=== PATIENT | male | born 1995 | race Two or more races ===

== ENCOUNTER 2017-01-08 16:52 | Emergency (ER) | payer BC ==
[2017-01-08] MEDS ORDERED: oxyCODONE/Acetamin 5/325 MG* TAB PO ONE (17:21)
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
[2017-01-08] MEDS ORDERED: Ketorolac INJ* 60 MG/2 ML VIAL IM ONE (18:48)
[2017-01-08] MEDS ORDERED: HYDROcodone/ACETAMIN 5-325 MG* 1 TAB PO ONE (19:09)
[2017-01-09 07:10] VITALS: BP 93/61
--- NOTE | 2017-02-05 10:32 | PN ---
Progress Note - Progress Note Note: nondisplaced fracture of the nasal bones
== END 2017-01-08 19:35 | disposition home or self-care (01) ==
LOC: ED 16:52
DX: S02.2XXA Fracture of nasal bones, initial encounter for closed fracture (principal); R55 Syncope and collapse; R22.0 Localized swelling, mass and lump, head; R04.0 Epistaxis; R51 Headache; S06.9X0A Unspecified intracranial injury without loss of consciousness, initial encounter; Y09 Assault by unspecified means; Y93.9 Activity, unspecified; Y92.9 Unspecified place or not applicable
CPT/HCPCS: 70450; 70486; 96374; 99282; A9270-GY; J1885

== ENCOUNTER 2017-02-08 19:37 | Inpatient (IN) | payer BC ==
[2017-02-08] MEDS ORDERED: LORazepam TAB(*) 1 MG PO ONE (19:56)
[2017-02-08 20:22] LABS: Benzodiazepine Urine Screen Presumptive Positive (None Detect)
[2017-02-08 20:23] LABS: Hematocrit 47 % (42-52); Hemoglobin 15.4 g/dl (14.0-18.0); Mean Corpuscular HGB Conc 33 g/dl (31-36); Mean Corpuscular Hemoglobin 27 pg (27-31); Mean Corpuscular Volume 83 fL (80-94); Mean Platelet Volume 7 um3 (7.4-10.4); Red Blood Count 5.63 10^6/ul (4.0-5.4); Red Cell Distribution Width 13 % (10.5-15); White Blood Count 10.1 10^3/ul (3.5-10.8)
[2017-02-08] MEDS ORDERED: LORazepam INJ* 2 MG/ML 1 ML VIAL ONE (20:26)
[2017-02-08] MEDS ORDERED: diPHENhydraMINE IV* 50 MG/ML 1 ml VIAL (BENADRYL) ONE (20:27)
[2017-02-08] MEDS ORDERED: Haloperidol INJ IV/IM* 5 MG/ML AMP ONE (20:27)
[2017-02-08 20:29] LABS: Urine Bacteria Absent (Absent); Urine Bilirubin Negative (Negative); Urine Glucose Negative (Negative); Urine Nitrite Negative (Negative)
[2017-02-08] MEDS ORDERED: diPHENhydraMINE IV* 50 MG/ML 1 ml VIAL (BENADRYL) IM ONE (20:29)
[2017-02-08] MEDS ORDERED: LORazepam INJ* 2 MG/ML 1 ML VIAL IM ONE (20:29)
[2017-02-08] MEDS ORDERED: Haloperidol INJ IV/IM* 5 MG/ML AMP IM ONE (20:29)
[2017-02-08 20:37] LABS: ALT 14 U/L (7-52); AST 23 U/L (13-39); Albumin 3.8 g/dL (3.2-5.2); Alkaline Phosphatase 60 U/L (34-104); Anion Gap 6 mmol/L (2-11); BUN/Creatinine Ratio 12.5 (8-20); Blood Urea Nitrogen 14 mg/dL (6-24); CO2 Carbon Dioxide 25 mmol/L (22-32); Calcium 9.2 mg/dL (8.6-10.3); Chloride 106 mmol/L (101-111); EGFR African American 106.4 (>60); EGFR Non-African American 82.8 (>60); Globulin 3.3 g/dL (2-4); Glucose 93 mg/dL (70-100); Sodium 137 mmol/L (133-145); Total Protein 7.1 g/dL (6.4-8.9)
[2017-02-08 20:45] LABS: Acetaminophen < 15 mcg/mL; Alcohol < 10 mg/dL (<10); Salicylate < 2.50 mg/dL (<30)
[2017-02-08 20:56] LABS: TSH (Thyroid Stimulating Horm) 0.95 mcIU/mL (0.34-5.60)
--- NOTE | 2017-02-08 23:35 | ED ---
Sunil Jin Billy, scribed for Mika Bautista MD on 02/08/17 at 2010 . 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 His friend called 911 after the patient said he had thoughts to hurt himself. Patient states that he is withdrawing from heroin at this time. He last used 2 days ago. He says he normally injects 0.5-1.0g heroin or consumes 2-3 tablets of oxycodone per day. He has a history of anxiety but denies any prior history of depression or suicidal ideation/attempts. But he states he has recently been through a lot of stress in his personal life. At this time in the ED, he says all he can think about is "breaking out of here and buying heroin" but he " knows that that's bad." - History Of Current Complaint Chief Complaint: EDMentalHealth Time Seen by Provider: 02/08/17 19:45 Hx Obtained From: Patient Onset/Duration: Gradual Onset, Lasting Days, Still Present Timing: Constant Severity Initially: Moderate Severity Currently: Moderate Character: Anxious Aggravating Factor(s): Recent Stress, Alcohol Use Alleviating Factor(s): Nothing Associated Signs And Symptoms: Positive: Negative Related History: Positive For: Prior Psychiatric Issues Has Suicidal: Reports: Thoughts - Allergies/Home Medications Allergies/Adverse Reactions: Allergies Allergy/AdvReac Type Severity Reaction Status Date / Time No Known Allergies Allergy Verified 05/31/16 19:12 PMH/Surg Hx/FS Hx/Imm Hx Endocrine/Hematology History: Denies: Hx Diabetes Cardiovascular History: Denies: Hx Myocardial Infarction Psychiatric History: Reports: Hx Anxiety, Hx Substance Abuse - IVDA Infectious Disease History: No Infectious Disease History: Denies: Traveled Outside the [place] in Last 30 Days - Family History Known Family History: Positive: Diabetes, Other - Substance abuse - Social History Alcohol Use: None Alcohol Amount: denies Hx Substance Use: Yes Substance Use Type: Reports: Cocaine, Heroin, Marijuana Substance Use Comment - Amount & Last Used: denies Hx Tobacco Use: Yes Smoking Status (MU): Current Some Day Smoker Review of Systems Negative: Fever Positive: Other - suicidal ideation, heroin withdrawal All Other Systems Reviewed And Are Negative: Yes Physical Exam Triage Information Reviewed: Yes Vital Signs On Initial Exam: Initial Vitals Temp Pulse Resp BP Pulse Ox 98.1 F 114 18 122/85 96 02/08/17 19:53 02/08/17 19:53 02/08/17 19:53 02/08/17 19:53 02/08/17 19:53 Vital Signs Reviewed: Yes Appearance: Positive: Well-Appearing, No Pain Distress Skin: Positive: Warm, Skin Color Reflects Adequate Perfusion, Dry, Other - Track pope on arms. Head/Face: Positive: Normal Head/Face Inspection ENT: Positive: Normal ENT inspection Neck: Positive: Supple, Nontender Respiratory/Lung Sounds: Positive: Clear to Auscultation, Breath Sounds Present Cardiovascular: Positive: Tachycardia Abdomen Description: Positive: Nontender, Soft Musculoskeletal: Positive: Normal, Strength/ROM Intact Neurological: Positive: Normal, Sensory/Motor Intact, Alert, Oriented to Person Place, Time Psychiatric: Positive: Other - agitated Diagnostics - Vital Signs Vital Signs Temp Pulse Resp BP Pulse Ox 02/08/17 20:00 20 02/08/17 19:53 98.1 F 114 18 122/85 96 - Laboratory Lab Results: Lab Results 02/08/17 02/08/17 02/08/17 Range/Units 19:50 19:50 20:05 WBC 10.1 (3.5-10.8) 10^3/ul RBC 5.63 H (4.0-5.4) 10^6/ul Hgb 15.4 (14.0-18.0) g/dl Hct 47 (42-52) % MCV 83 (80-94) fL MCH 27 (27-31) pg MCHC 33 (31-36) g/dl RDW 13 (10.5-15) % Plt Count 283 (150-450) 10^3/ul MPV 7 L (7.4-10.4) um3 Neut % (Auto) 65.1 (38-83) % Lymph % (Auto) 19.9 L (25-47) % Dixon % (Auto) 11.4 H (1-9) % Eos % (Auto) 2.5 (0-6) % Baso % (Auto) 1.1 (0-2) % Absolute Neuts (auto) 6.6 (1.5-7.7) 10^3/ul Absolute Lymphs (auto) 2.0 (1.0-4.8) 10^3/ul Absolute Monos (auto) 1.2 H (0-0.8) 10^3/ul Absolute Eos (auto) 0.3 (0-0.6) 10^3/ul Absolute Basos (auto) 0.1 (0-0.2) 10^3/ul Absolute Nucleated RBC 0 10^3/ul Nucleated RBC % 0 Sodium (133-145) mmol/L Potassium (3.5-5.0) mmol/L Chloride (101-111) mmol/L Carbon Dioxide (22-32) mmol/L Anion Gap (2-11) mmol/L BUN (6-24) mg/dL Creatinine (0.67-1.17) mg/dL Est GFR ( Amer) (>60) Est GFR (Non-Af Amer) (>60) BUN/Creatinine Ratio (8-20) Glucose (70-100) mg/dL Calcium (8.6-10.3) mg/dL Total Bilirubin (0.2-1.0) mg/dL AST (13-39) U/L ALT (7-52) U/L Alkaline Phosphatase (34-104) U/L Total Protein (6.4-8.9) g/dL Albumin (3.2-5.2) g/dL Globulin (2-4) g/dL Albumin/Globulin Ratio (1-3) TSH (0.34-5.60) mcIU/mL Urine Color Yellow Urine Appearance Clear Urine pH 6.0 (5-9) Ur Specific [place] 1.028 (1.010-1.030) Urine Protein 1+(30 mg/dl) H (Negative) Urine Ketones Trace H (Negative) Urine Blood Negative (Negative) Urine Nitrate Negative (Negative) Urine Bilirubin Negative (Negative) Urine Urobilinogen Negative (Negative) Ur Leukocyte Esterase Negative (Negative) Urine WBC (Auto) Trace(0-5/hpf) (Absent) Urine RBC (Auto) Trace(0-2/hpf) (Absent) Urine Bacteria Absent (Absent) Urine Glucose Negative (Negative) Salicylates (<30) mg/dL Urine Opiates Screen Presumptive positive H (None Detect) Acetaminophen mcg/mL Ur Barbiturates Screen None detected (None Detect) Ur Phencyclidine Scrn None detected (None Detect) Ur Amphetamines Screen Presumptive positive H (None Detect) U Benzodiazepines Scrn Presumptive positive H (None Detect) Urine Cocaine Screen Presumptive positive H (None Detect) U Cannabinoids Screen Presumptive positive H (None Detect) Serum Alcohol (<10) mg/dL 02/08/17 Range/Units 20:05 WBC (3.5-10.8) 10^3/ul RBC (4.0-5.4) 10^6/ul Hgb (14.0-18.0) g/dl Hct (42-52) % MCV (80-94) fL MCH (27-31) pg MCHC (31-36) g/dl RDW (10.5-15) % Plt Count (150-450) 10^3/ul MPV (7.4-10.4) um3 Neut % (Auto) (38-83) % Lymph % (Auto) (25-47) % Dixon % (Auto) (1-9) % Eos % (Auto) (0-6) % Baso % (Auto) (0-2) % Absolute Neuts (auto) (1.5-7.7) 10^3/ul Absolute Lymphs (auto) (1.0-4.8) 10^3/ul Absolute Monos (auto) (0-0.8) 10^3/ul Absolute Eos (auto) (0-0.6) 10^3/ul Absolute Basos (auto) (0-0.2) 10^3/ul Absolute Nucleated RBC 10^3/ul Nucleated RBC % Sodium 137 (133-145) mmol/L Potassium 4.0 (3.5-5.0) mmol/L Chloride 106 (101-111) mmol/L Carbon Dioxide 25 (22-32) mmol/L Anion Gap 6 (2-11) mmol/L BUN 14 (6-24) mg/dL Creatinine 1.12 (0.67-1.17) mg/dL Est GFR ( Amer) 106.4 (>60) Est GFR (Non-Af Amer) 82.8 (>60) BUN/Creatinine Ratio 12.5 (8-20) Glucose 93 (70-100) mg/dL Calcium 9.2 (8.6-10.3) mg/dL Total Bilirubin 0.30 (0.2-1.0) mg/dL AST 23 (13-39) U/L ALT 14 (7-52) U/L Alkaline Phosphatase 60 (34-104) U/L Total Protein 7.1 (6.4-8.9) g/dL Albumin 3.8 (3.2-5.2) g/dL Globulin 3.3 (2-4) g/dL Albumin/Globulin Ratio 1.2 (1-3) TSH 0.95 (0.34-5.60) mcIU/mL Urine Color Urine Appearance Urine pH (5-9) Ur Specific [place] (1.010-1.030) Urine Protein (Negative) Urine Ketones (Negative) Urine Blood (Negative) Urine Nitrate (Negative) Urine Bilirubin (Negative) Urine Urobilinogen (Negative) Ur Leukocyte Esterase (Negative) Urine WBC (Auto) (Absent) Urine RBC (Auto) (Absent) Urine Bacteria (Absent) Urine Glucose (Negative) Salicylates < 2.50 (<30) mg/dL Urine Opiates Screen (None Detect) Acetaminophen < 15 mcg/mL Ur Barbiturates Screen (None Detect) Ur Phencyclidine Scrn (None Detect) Ur Amphetamines Screen (None Detect) U Benzodiazepines Scrn (None Detect) Urine Cocaine Screen (None Detect) U Cannabinoids Screen (None Detect) Serum Alcohol < 10 (<10) mg/dL Result Diagrams: 02/08/17 20:05 02/08/17 20:05 Lab Statement: Any lab studies that have been ordered have been reviewed, and results considered in the medical decision making process. Course/Dx - Course Course Of Treatment: NO CRITICAL CARE TIME Assessment/Plan: ADMIT U STABLE - Differential Dx/Clinical Impression Provider Diagnosis: Mental health problem, Polysubstance abuse Discharge - Discharge Plan Condition: Stable Disposition: ADMITTED TO [facility] Referrals: [facility] [place] KRISTEN Turner [Primary Care Provider] - The documentation as recorded by the Sunil grider Billy accurately reflects the service I personally performed and the decisions made by me, Mika Bautista MD.
[2017-02-09] MEDS ORDERED: Acetaminophen TAB* 325 MG PO PRN (00:41)
[2017-02-09] MEDS ORDERED: Al Hydrox/Mg Hydrox/Simet LIQ* 30 ML UDC PO PRN (00:41)
[2017-02-09] MEDS: Vitamin THERAPEUTIC TAB PO SCH (13:54)
--- NOTE | 2017-02-09 16:16 | ADMNOTE ---
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 He has history of opioid use disorder, completed IOP at [facility] in November 2016, relapsed at the end of December 2016. Describes "ingestion" of 80-120 mg of oxycodone daily or snorting 1/4 to 1/2 gr of heroin daily, admits to occasional use of cannabis and cocaine, he is prescribed Vyvanse and Klonopin. UDS shows the presence of all these substances. He endorses high anxiety, depressed mood, insomnia, self- isolating, feelings of guilt and worthlessness and passive occasional passive wish. stressors: include impact of substance use, breakup with GF, strained relationships with parents, and feeling socially isolated. Exam Appearance: Well Developed/Nourished Hygiene: Normal Grooming: Well Kept Psychomotor Activities: Normal Exhibits Abnormal Movement: No Attitude and Relatedness: Superficially Cooperative Eye Contact: Fair - Speech Quality: Unpressured Latencies: Normal Quantity: Appropriate Patient's Decription of Mood: "Anxious" Observed Affect: Constricted Affect Consistent with: Dysphoria Patient's Thought Process: Coherent, Goal Directed Thought Content: Yes Passive Wish, No Suicidal Planning, No Homicidal Ideation, No Paranoid Ideation Experiencing Hallucinations: No, Sensorium is Clear Level of Consciousness: Alert Orientation: Yes Intact Impulse Control: Intact Insight and Judgement: Poor Impression - Impression Clinical Impression: 21yo [employer] student with history of accidental overdose of opioid, polysubstance use disorder, outpatient care, previous diagnoses of generalized anxiety disorder and ADHD brought in by EMS because of concerns about suicidalily in the setting of relapse on multiple drugs and psychosocial stresses. Inpatient DSM-IV Dx: Polysubstance use disorder, severe (opioid, heroin, amphetamines, benzadiazepines, cocaine and cannabis). Merits Inpatient Hospitalization: Yes Plan - Treatment Plan Treatment Plan: Clonidine withdrawal protocol Gruadal taper of Clonazepam Hold Vyvanse. Confer with Dr. Ford. Consider inpatient rehab. Continued Medication Management: Continue Outpt Medication Medications: Current Medications Acetaminophen (Tylenol Tab*) 650 mg PO Q4H PRN PRN Reason: PAIN or TEMP > 101 F Al Hydrox/Mg Hydrox/Simethicone (Maalox Plus*) 30 ml PO Q4H PRN PRN Reason: INDIGESTION Multivitamins (Theragran Tab*) 1 tab PO DAILY ASHELY Last Admin: 02/09/17 13:54 Dose: 1 tab - Discharge Plan Discharge Plan: Drug/Alcohol Rehab Outpatient Program: [facility]
[2017-02-09] MEDS: clonazePAM TAB(*) 0.5 MG PO PRN (21:27)
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
[2017-02-10] MEDS: Vitamin THERAPEUTIC TAB PO SCH (08:17)
[2017-02-10] MEDS: LISDEXAMFETAMINE 50 MG PO SCH (08:17)
[2017-02-10] MEDS: clonazePAM TAB(*) 0.5 MG PO PRN ×2 (08:17→15:26)
[2017-02-10] MEDS ORDERED: Loperamide CAP* 4 MG INITIAL PRN DOSE PO ONE (09:00)
[2017-02-10] MEDS ORDERED: Mouth Piece, Nicotine* 1 EACH CARTRIDGE ONE (10:25)
[2017-02-10] MEDS: Nicotine Inhaler* 10 MG AMP INH PRN ×2 (10:26→21:53)
--- NOTE | 2017-02-10 11:14 | PN ---
Subjective - Subjective Service Type: 89001 Hosp care 25 min moderate complexity Subjective: Tony minimizes to me the SI that was reported to his friend Quincy which was the signal triggering activation of emergency services culminating in his admission. Quincy reports that Tony had told him he had thoughts about ending his life with 'dope' because of despair over being addicted to the stuff. Tony is anxious to be discharged today, as he wants to get his wallet and he wants to get his phone and he wants to get to [place] as soon as possible to get started in rehab. I have asked Quincy to come in for a meeting tomorrow morning for better [id number] information gathering prior to discharge. Objective - Appearance Appearance: Healthy Appearing Dysmorphic Features: No Hygiene: Mal-odorous - halitotic Grooming: Disheveled - Behavior Psychomotor Activities: Normal Exhibits Abnormal Movement: No - Attitude and Relatedness Attitude and Relatedness: Superficially Cooperative - but may be making masked/ guarded presentation Eye Contact: Good - Speech Quality: Unpressured Latencies: Normal Quantity: Appropriate - Mood Patient's Decription of Mood: "Good" - Affect Observed Affect: Tense Affect Consistent with: Dysphoria - Thought Process Patient's Thought Process: Coherent, Goal Directed Thought Content: No Passive Wish, No Suicidal Planning, No Homicidal Ideation, No Paranoid Ideation - Sensorium Experiencing Hallucinations: No, Sensorium is Clear Type of Hallucinations: Visual: No, Auditory: No, Command: No - Level of Consciousness Level of Consciousness: Alert Orientation: Yes Intact, Yes Orientated to Time, Yes Orientated to Place, Yes Orientated to Person - Impulse Control Impulse Control: Intact - Insight and Judgement Insight and Judgement: Poor - Group Participation Particating in Group Activities: Yes Group Participation Comments: declines more than attends - Medication Management Medication Management Adherence: Yes Assessment - Assessment Merits Inpatient Hospitalization: For Stabilization, For Discharge Planning, Pending Safe DC Plan Inpatient DSM-IV Dx: Polysubstance use disorder, severe (opioid, heroin, amphetamines, benzadiazepines, cocaine and cannabis). 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 He would like to discharge as soon as possible to rehab to address these problems directly. Admission was based on safety concerns raised by report to his friend Quincy that he wanted to kill himself using heroin or other illicit substances. He denies any history of suicidality in any form. He reports his opioid use disorder is of just over 1 year duration, with relapse in December after establishing sobriety in September after onset November 2015. Situation is somewhat more complicated due to use of stimulant and benzodiazepine on prescription against reported history of ADHD and KAREN. Plan - Plan Treatment Plan: Name: TONY DOTY Birthdate: 1995 [id number] Meeting with imaging services director of patient's suicidal statements to assess safety concerns. Continuation for now of Vyvanse and coordination of care with Dr Member as regards basis for its prescription, assessment of benefits vs risks. Taper off of benzodiazepines. Collateral and coordination of logistics of aftercare in [facility] per patient's wishes with family. Medications: Current Medications Acetaminophen (Tylenol Tab*) 650 mg PO Q4H PRN PRN Reason: PAIN or TEMP > 101 F Al Hydrox/Mg Hydrox/Simethicone (Maalox Plus*) 30 ml PO Q4H PRN PRN Reason: INDIGESTION Clonazepam (Klonopin Tab(*)) 0.5 mg PO BID PRN PRN Reason: ANXIETY - SEVERE Last Admin: 02/10/17 08:17 Dose: 0.5 mg Lisdexamfetamine Dimesylate (Vyvanse(Nf)) 50 mg PO DAILY [facility] Last Admin: 02/10/17 08:17 Dose: 50 mg Multivitamins (Theragran Tab*) 1 tab PO DAILY [facility] Last Admin: 02/10/17 08:17 Dose: 1 tab Nicotine (Nicotine Inhaler*) 10 mg INH Q2H PRN PRN Reason: CRAVING Last Admin: 02/10/17 10:26 Dose: 10 mg - Discharge Plan Discharge Plan: Drug/Alcohol Rehab - followed by Outpatient Program: Counseling/Psych Services at [facility]
[2017-02-10] MEDS ORDERED: Ibuprofen TAB* 400 MG Q6H PRN PO (12:00)
[2017-02-10] MEDS: cloNIDine TAB* 0.1 MG Q4H DAYS 1 TO 4 PO SCH ×3 (12:12→20:24)
[2017-02-10] MEDS: hydrOXYzine HCL TAB* 50 MG PO PRN ×4 (12:13→23:37)
[2017-02-10] MEDS: Loperamide CAP* 2 MG AFTER EACH LOOSE STOOL MDD 16 MG PO PRN (12:14)
--- NOTE | 2017-02-10 13:25 | PN ---
MHU: Group Therapy Note - Service Type Service Type: 60845 Group Psychotherapy - Cognitive Behavioral Group Therapy ( CBT):Patient was attentive and participatory in CBT programming this morning, and remained in good behavioral control. Patient expressed positive insights regarding relevant treatment interventions and goals.
[2017-02-10] MEDS: Gabapentin CAP(*) 100 MG PO SCH ×2 (15:55→20:26)
[2017-02-10] MEDS: Carisoprodol TAB* 350 MG Q6H PRN PO ×2 (17:35→22:45)
[2017-02-10] MEDS: cloNIDine TAB* 0.1 MG ADDITIONAL PRN DOSES DAYS 1-4 PO (17:35)
[2017-02-11] MEDS: clonazePAM TAB(*) 0.5 MG PO PRN ×2 (00:07→13:59)
[2017-02-11] MEDS: cloNIDine TAB* 0.1 MG Q4H DAYS 1 TO 4 PO SCH ×6 (00:55→21:51)
[2017-02-11] MEDS: Vitamin THERAPEUTIC TAB PO SCH (08:16)
[2017-02-11] MEDS: Gabapentin CAP(*) 100 MG PO SCH ×3 (08:16→20:08)
[2017-02-11] MEDS: LISDEXAMFETAMINE 50 MG PO SCH (08:18)
[2017-02-11] MEDS: Carisoprodol TAB* 350 MG Q6H PRN PO ×3 (08:20→20:38)
[2017-02-11] MEDS: hydrOXYzine HCL TAB* 50 MG PO PRN ×3 (08:21→23:34)
[2017-02-11] MEDS: cloNIDine TAB* 0.1 MG ADDITIONAL PRN DOSES DAYS 1-4 PO ×2 (10:30→19:18)
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
[2017-02-11] MEDS: Nicotine Inhaler* 10 MG AMP INH PRN ×2 (19:10→22:59)
--- NOTE | 2017-02-11 20:44 | RAD ---
HISTORY: New onset memory loss and suicidal ideation. COMPARISONS: CT of the brain dated January 08, 2017 TECHNIQUE: The following sequences were obtained of the head: Sagittal T1-weighted images, axial T2-weighted images, axial FLAIR images, axial susceptibility weighted images, axial T1-weighted images. Additionally, axial diffusion-weighted images were obtained with calculated apparent diffusion coefficients.. FINDINGS: HEMORRHAGE/INFARCT: There is no hemorrhage or acute infarct. MASSES/SHIFT: There is no mass or shift. EXTRA-AXIAL SPACES/MENINGES: There are no extra-axial fluid collections. SULCI AND VENTRICLES: The sulci and ventricles are normal in size and position for the patient's stated age. CEREBRUM: There are no focal parenchymal abnormalities. BRAINSTEM: There are no focal parenchymal abnormalities. CEREBELLUM: There are no focal parenchymal abnormalities. The cerebellar tonsils are normal in size and position. SELLA: The sella is normal. PINEAL: The pineal region is clear. CP ANGLE/TEMPORAL BONES: The labyrinthine structures are grossly normal. VESSELS: Normal flow-voids are noted within the visualized vertebral vasculature. DIFFUSION ABNORMALITIES: There are no diffusion abnormalities. PARANASAL SINUSES/MASTOIDS: The paranasal sinuses are clear. ORBITS: The orbits are unremarkable. BONES AND SOFT TISSUE: No bone or soft tissue abnormalities are noted. IMPRESSION: NORMAL MRI OF THE BRAIN.
[2017-02-11] MEDS ORDERED: clonazePAM TAB(*) 0.5 MG PO SCH (21:00)
[2017-02-12] MEDS: cloNIDine TAB* 0.1 MG Q4H DAYS 1 TO 4 PO SCH ×3 (00:44→08:17)
[2017-02-12] MEDS: Carisoprodol TAB* 350 MG Q6H PRN PO (00:45)
[2017-02-12 07:59] VITALS: BP 118/67
[2017-02-12] MEDS: Vitamin THERAPEUTIC TAB PO SCH (08:17)
[2017-02-12] MEDS: Gabapentin CAP(*) 100 MG PO SCH (08:19)
[2017-02-12] MEDS: Loperamide CAP* 2 MG AFTER EACH LOOSE STOOL MDD 16 MG PO PRN (08:55)
--- NOTE | 2017-02-12 11:07 | DS ---
Subjective - Subjective Service Types: [id number] [facility] Day Mgmt complex over 30 min Discharge Date: 02/12/17 Subjective: Family meeting was held today with Tony, his father Lyn, Ms Delarosa, and myself. Lyn asked that his son be dishcarged into his care. Tony asked for discharge today. He reported full sustained remission of suicidal ideation or any other dangerous intent or plan. He voiced commitment to aftercare at [facility], hoping to get started on Vivitrol to maintain sobriety from opiates. He plans to complete 4 classes at [employer] in the next 5 weeks, then go forward with more intensive treatment of his substance abuse issues. He reports that he did this before, attending treatment at [facility] and while completing coursework at [facility]. Objective - Appearance Appearance: Healthy Appearing Dysmorphic Features: No Hygiene: Normal Grooming: Well Kept - Behavior Psychomotor Activities: Normal Exhibits Abnormal Movement: No - Attitude and Relatedness Attitude and Relatedness: Well Related Eye Contact: Good - Speech Quality: Unpressured Latencies: Normal Quantity: Appropriate - Mood Patient's Decription of Mood: "Good" - Affect Observed Affect: Fair Affect Consistent with: Euthymia - Thought Process Patient's Thought Process: Coherent, Goal Directed Thought Content: No Passive Wish, No Suicidal Planning, No Homicidal Ideation, No Paranoid Ideation - Sensorium Experiencing Hallucinations: No, Sensorium is Clear Type of Hallucinations: Visual: No, Auditory: No, Command: No - Level of Consciousness Level of Consciousness: Alert Orientation: Yes Intact, Yes Orientated to Time, Yes Orientated to Place, Yes Orientated to Person - Impulse Control Impulse Control: Intact - Insight and Judgement Insight and Judgement: Fair - Group Participation Particating in Group Activities: Yes - Medication Management Medication Management Adherence: Yes Treatment Course & Assessment Clinical Course & Impression: 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 He would like to discharge as soon as possible to rehab to address these problems directly. Admission was based on safety concerns raised by report to his friend Quincy that he wanted to kill himself using heroin or other illicit substances. He denies any history of suicidality in any form. He reports his opioid use disorder is of just over 1 year duration, with relapse in December after establishing sobriety in September after onset November 2015. Situation is somewhat more complicated due to use of stimulant and benzodiazepine on prescription against reported history of ADHD and KAREN. 02.11.17 Tony's interactions with staff have raised concern about disorganized thought/behavior, with odd request to serenade recreational therapist and poor and perhaps confabulatory recall of recent care history with social problems specialist. This in context of multiple head injuries and substance abuse. Will hold family meeting tomorrow. 02.12.17 Tony is cleared for discharge per his and his father's request. He is assessed as at no acutely increased risk of harm to himself or others, and capable of caring for himself adequately to avoid harm. He therefore does not meet criteria for retention. MRI of head was negative, and he showed no focal cognitive, attentional or motor deficits, had been medically cleared from head injuries 3 and once before that. MMPI had a single elevation on the hypomania scale, consistent with detoxing from multiple substances. He voices commitment to aftercare plans including substance abuse treatment at [facility], and follow up at [facility]. His father reports that he and his will be staying here with Tony for the next few days to help him get started on his path to maintenance of sobriety, and they vouch for his safety in their care. He has reported that the suicidal ideation that his friend Quincy heard him express was without true intent. Tony feels that Quincy was sensitized to the possibility of suicide from his own past suicidality, and may have therefore overestimated and overstated Tony's risks. Although some odd behaviors were noted during this hospitalization, such as offering to hilton Abarca the recreational therapist and some apparent lapses of memory noted by Ms Delarosa, this latter observation was corrected by Lyn, who explained that Tony had gotten the name of the therapist wrong, but had been to [facility] as he told Ms Delarosa. Other observations of his behaviors in the last 24 hours have given no indication of any impairment or oddness. Tony and his father ultimately agreed to have Tony's Klonopin and Vyvanse discarded through the hospital pharmacy due to their high abuse potential in this fine young man whose nucleus accumbens has been hijacked by these and other substances. He has agreed to function without controlled substances. Dr Ford agrees with no longer prescribing controlled substances to Tony. As he complained of continued mild discomfort from psychological withdrawal from the Klonopin at discharge, I ordered a single dose of 25 mg chlordiazepoxide ( Librium), bioequivalent to 1.25 mg Klonopin. Librium has a very long half-life that will help mute the psychological discomfort of stopping Klonopin, which had been tapered down to 0.5 mg nightly during this hospitalization. Tony remains at elevated chronic risk of relapse to substances and faces multiple risks in that event, including recurrent suicidal ideation, impairment of educational performance leading to lost opportunities, falls, association with dangerous individuals, and so on. He can reduce this risk by adherence to the aftercare he has agreed to. He may have been able to reduce this risk even further had he agreed to inpatient rehab, but he declined that option. He also declined trial of the Noradrenaline-Dopamine Reuptake Inhibitor bupropion, which can provide some benefit against attentional deficits and low energy. Merits Inpatient Hospitalization: No Clear for Discharge: Adequate Clinical Respons, Acceptable Safety Profile, Low Utility of Inpt Care Inpatient DSM-IV Dx: Substance-induced mood and anxiety disorders. Polysubstance use disorder, severe (opioid, heroin, amphetamines, benzadiazepines, cocaine and cannabis). - [place] II MR and Personality Disorder: Deferred - Odessa III Medical Illness: None active. Recent history of head injuries. - Od[place] IV Stressors: Academics, breakup with girlfriend Family: parents supportive Primary Support Group: parents - Od[place] V [id number]: 65 Estimate of Highest-Past Year: 75 Discharge Planning - Discharge Planning Medications: Current Medications Acetaminophen (Tylenol Tab*) 650 mg PO Q4H PRN PRN Reason: PAIN or TEMP > 101 F Al Hydrox/Mg Hydrox/Simethicone (Maalox Plus*) 30 ml PO Q4H PRN PRN Reason: INDIGESTION Last Admin: 02/11/17 20:07 Dose: 30 ml Carisoprodol (Soma Tab*) 350 mg PO Q6H PRN PRN Reason: MUSCLE CRAMPS/ACHING Last Admin: 02/12/17 00:45 Dose: 350 mg Clonazepam (Klonopin Tab(*)) 0.5 mg PO BEDTIME ASHELY Last Admin: 02/11/17 20:09 Dose: 0.5 mg Clonidine HCl (Catapres Tab*) 0.1 mg PO Q4H [facility] Stop: 02/13/17 23:59 Last Admin: 02/12/17 08:17 Dose: Not Given Clonidine HCl (Catapres Tab*) 0 - 0.6 mg PO Q8HR [facility] Stop: 02/14/17 23:59 Clonidine HCl (Catapres Tab*) 0 - 0.3 mg PO Q8HR [facility] Stop: 02/15/17 23:59 Clonidine HCl (Catapres Tab*) 0 - 0.15 mg PO Q12HR [facility] PRN Reason: Protocol Stop: 02/16/17 23:59 Clonidine HCl (Catapres Tab*) 0.1 mg PO Q4H PRN PRN Reason: DETOX Stop: 02/13/17 23:59 Last Admin: 02/11/17 19:18 Dose: 0.1 mg Gabapentin (Neurontin Cap(*)) 200 mg PO TID [facility] Last Admin: 02/12/17 08:19 Dose: 200 mg Hydroxyzine HCl (Atarax Tab*) 50 mg PO Q4H PRN PRN Reason: ANXIETY Last Admin: 02/11/17 23:34 Dose: 50 mg Ibuprofen (Motrin Tab*) 400 mg PO Q6H PRN PRN Reason: BONE/JOINT PAIN Last Admin: 02/11/17 15:51 Dose: 400 mg Loperamide HCl (Imodium Cap*) 2 mg PO .SEE BELOW PRN PRN Reason: DIARRHEA Last Admin: 02/12/17 08:55 Dose: 2 mg Multivitamins (Theragran Tab*) 1 tab PO DAILY [facility] Last Admin: 02/12/17 08:17 Dose: 1 tab Nicotine (Nicotine Inhaler*) 10 mg INH Q2H PRN PRN Reason: CRAVING Last Admin: 02/11/17 22:59 Dose: 10 mg Discharge Planning: Prescriptions provided for discharge [] Yes [] No Follow up care details as per social work arrangements. Patient response to discharge plan: [] eager for discharge [] agreeable with discharge plan [] ambivalent about discharge [] disagrees with discharge today
[2017-02-12] MEDS ORDERED: chlordiazePOXIDE CAP* 25 MG PO ONE ×2 (11:37→12:15)
[2017-02-14] MEDS ORDERED: cloNIDine TAB* DOSING for DAY 5 PO SCH (06:00)
[2017-02-15] MEDS ORDERED: cloNIDine TAB* DOSING for DAY 6 PO SCH (06:00)
[2017-02-16] MEDS ORDERED: cloNIDine TAB* DOSING FOR DAY 7 PO SCH (09:00)
== END 2017-02-12 12:30 | disposition short-term general hospital (02) | DRG 776 ==
LOC: ED 19:37 → BSU 23:35 → ED 23:51
PROVIDERS: ADMIT Psychiatry & Neurology Psychiatry; ATTEND Psychiatry & Neurology Psychiatry
DX: F19.10 Other psychoactive substance abuse, uncomplicated (principal); R45.851 Suicidal ideations; F90.9 Attention-deficit hyperactivity disorder, unspecified type; F41.9 Anxiety disorder, unspecified; Z81.3 Family history of other psychoactive substance abuse and dependence; Z81.8 Family history of other mental and behavioral disorders; Z81.0 Family history of intellectual disabilities
CPT/HCPCS: 36415; 70551; 80053; 80307; 80320; 80329; 81003; 81015; 84443; 85025; 86703; 90853; 99222; 99232; 99238; A9270-GY; G0480; J1200; J1630; J2060

== ENCOUNTER 2017-02-13 14:16 | Emergency (ER) | payer BC ==
[2017-02-13 15:10] LABS: Hematocrit 46 % (42-52); Hemoglobin 15.3 g/dl (14.0-18.0); Mean Corpuscular HGB Conc 33 g/dl (31-36); Mean Corpuscular Hemoglobin 27 pg (27-31); Mean Corpuscular Volume 82 fL (80-94); Mean Platelet Volume 7 um3 (7.4-10.4); Red Cell Distribution Width 13 % (10.5-15); White Blood Count 9.5 10^3/ul (3.5-10.8)
[2017-02-13 15:15] LABS: Urine Bilirubin Negative (Negative); Urine Glucose Negative (Negative); Urine Nitrite Negative (Negative)
[2017-02-13 15:24] LABS: ALT 13 U/L (7-52); AST 22 U/L (13-39); Albumin 4.2 g/dL (3.2-5.2); Alkaline Phosphatase 62 U/L (34-104); Anion Gap 4 mmol/L (2-11); BUN/Creatinine Ratio 11.6 (8-20); Benzodiazepine Urine Screen Presumptive Positive (None Detect); Blood Urea Nitrogen 16 mg/dL (6-24); CO2 Carbon Dioxide 29 mmol/L (22-32); Calcium 9.3 mg/dL (8.6-10.3); Chloride 102 mmol/L (101-111); EGFR African American 83.6 (>60); Globulin 3.1 g/dL (2-4); Glucose 91 mg/dL (70-100); Magnesium 2.2 mg/dL (1.9-2.7); Potassium 4.2 mmol/L (3.5-5.0); Sodium 135 mmol/L (133-145); Total Protein 7.3 g/dL (6.4-8.9)
[2017-02-13] MEDS ORDERED: Ketorolac INJ* 30 MG/ML 1 ML VIAL IV ONE (15:31)
[2017-02-13 15:43] LABS: Alcohol < 10 mg/dL (<10)
[2017-02-13] MEDS ORDERED: Acetaminophen TAB* 325 MG PO ONE (16:47)
[2017-02-13] MEDS ORDERED: Acetaminophen TAB* 325 MG ONE (16:48)
[2017-02-13] MEDS ORDERED: Tetracaine 0.5% OPTH.SOL 15ML* BTL ONE (17:05)
[2017-02-13] MEDS ORDERED: Tetracaine 0.5% OPTH.SOL 4 ML* 1 DROP BTL RIGHT EYE SCH (17:30)
[2017-02-13 17:45] VITALS: BP 133/76
--- NOTE | 2017-02-14 20:48 | ED ---
Danish Jin Claudia, scribed for David Mccabe MD on 02/13/17 at 1430 . Neurological HPI - HPI Summary HPI Summary: 21 year old female presents to the ED via EMS from [facility]. Pt visited [facility] this am for right eye pain/irritation. Pt notes he has had the pain for a few days and thought a contact was stuck in his eye. The physician at [facility] did a full eye exam and noted no contact in his eye and suspected conjunctivitis. While at [facility] this pt suffered a full body Sz lasting a few minutes. Pt has a PMHx of Sz. He also notes that he is withdrawing from clonazepam and ativan. He notes he has not taken his clonazepam for the past 3 days. He notes his MD called his psychiatrist to discuss him stopping the Rx which is why he has not been taking it. Pt has a PMHx of substance abuse including heroin and cocaine but notes no use since June 2016. - History of Current Complaint Stated Complaint: SEIZURE Hx Obtained From: Patient Onset/Duration: Sudden Onset, Started minutes ago, Resolved Timing: Intermittent Episodes Lasting: Number of Seizures: 1 Headache Location: Frontal Character: Other: - Sz - Additional Pertinent History Primary Care Physician: [id number] - Allergy/Home Medications Allergies/Adverse Reactions: Allergies Allergy/AdvReac Type Severity Reaction Status Date / Time Tramadol Allergy depressed Verified 02/13/17 14:44 PMH/Surg Hx/FS Hx/Imm Hx Previously Healthy: Yes Endocrine/Hematology History: Denies: Hx Diabetes Cardiovascular History: Denies: Hx Myocardial Infarction, Hx Pacemaker/ICD Sensory History: Denies: Hx Contacts or Glasses, Hx Hearing Aid Opthamlomology History: Denies: Hx Contacts or Glasses Psychiatric History: Reports: Hx Anxiety, Hx Substance Abuse - IVDA Denies: Hx Eating Disorder, Hx Panic Disorder, Hx of Violent Episodes Against Others - Surgical History Surgery Procedure, Year, and Place: ORAL SURGERY - Family History Known Family History: Positive: Unknown, Diabetes, Other - Substance abuse - Social History Occupation: Student Lives: Alone Alcohol Use: Rare Alcohol Amount: denies Hx Substance Use: Yes Substance Use Type: Reports: Cocaine, Heroin, Prescribed Substance Use Comment - Amount & Last Used: Last use heroin IV 2 days ago Hx Tobacco Use: Yes Smoking Status (MU): Current Some Day Smoker Type: Cigarettes Have You Smoked in the Last Year: Yes Review of Systems Constitutional: Negative Positive: Other - right eye pain with erythematous quality ENT: Negative Cardiovascular: Negative Respiratory: Negative Gastrointestinal: Negative Genitourinary: Negative Musculoskeletal: Negative Skin: Negative Neurological: Other - Sz now resolved Positive: Headache Psychological: Normal All Other Systems Reviewed And Are Negative: Yes Physical Exam Triage Information Reviewed: Yes Vital Signs On Initial Exam: Initial Vitals Temp Pulse Resp BP Pulse Ox 100.2 F 108 18 150/86 99 02/13/17 14:41 02/13/17 14:41 02/13/17 14:41 02/13/17 14:41 02/13/17 14:41 Vital Signs Reviewed: Yes Appearance: Positive: Well-Appearing, No Pain Distress Skin: Positive: Warm, Skin Color Reflects Adequate Perfusion, Dry Head/Face: Positive: Normal Head/Face Inspection Eyes: Positive: Other: - injected sclera at the right eye ENT: Positive: Normal ENT inspection Neck: Positive: Supple, Nontender Respiratory/Lung Sounds: Positive: Clear to Auscultation, Breath Sounds Present Cardiovascular: Positive: RRR Abdomen Description: Positive: Nontender, Soft Musculoskeletal: Positive: Normal Neurological: Positive: Normal, Sensory/Motor Intact, Alert, Oriented to Person Place, Time, CN Intact II-III Diagnostics - Vital Signs Vital Signs Temp Pulse Resp BP Pulse Ox 02/13/17 17:44 100.2 F 100 18 133/76 02/13/17 17:30 112 18 110/76 99 02/13/17 17:00 117 17 113/79 100 02/13/17 16:32 100.2 F 120 18 108/77 99 02/13/17 16:28 125 18 108/77 82 02/13/17 16:00 109 17 110/70 100 02/13/17 15:30 115 16 118/86 100 02/13/17 15:00 120 23 100/86 99 02/13/17 14:41 100.2 F 122 15 150/86 100 - Laboratory Lab Results: Lab Results 02/13/17 02/13/17 02/13/17 Range/Units 14:50 14:50 14:50 WBC 9.5 (3.5-10.8) 10^3/ul RBC 5.60 H (4.0-5.4) 10^6/ul Hgb 15.3 (14.0-18.0) g/dl Hct 46 (42-52) % MCV 82 (80-94) fL MCH 27 (27-31) pg MCHC 33 (31-36) g/dl RDW 13 (10.5-15) % Plt Count 321 (150-450) 10^3/ul MPV 7 L (7.4-10.4) um3 Neut % (Auto) 68.1 (38-83) % Lymph % (Auto) 20.0 L (25-47) % Sierra % (Auto) 10.0 H (1-9) % Eos % (Auto) 0.8 (0-6) % Baso % (Auto) 1.1 (0-2) % Absolute Neuts (auto) 6.4 (1.5-7.7) 10^3/ul Absolute Lymphs (auto) 1.9 (1.0-4.8) 10^3/ul Absolute Monos (auto) 0.9 H (0-0.8) 10^3/ul Absolute Eos (auto) 0.1 (0-0.6) 10^3/ul Absolute Basos (auto) 0.1 (0-0.2) 10^3/ul Absolute Nucleated RBC 0 10^3/ul Nucleated RBC % 0 INR (Anticoag Therapy) 1.09 (0.89-1.11) Sodium (133-145) mmol/L Potassium (3.5-5.0) mmol/L Chloride (101-111) mmol/L Carbon Dioxide (22-32) mmol/L Anion Gap (2-11) mmol/L BUN (6-24) mg/dL Creatinine (0.67-1.17) mg/dL Est GFR ( Amer) (>60) Est GFR (Non-Af Amer) (>60) BUN/Creatinine Ratio (8-20) Glucose (70-100) mg/dL Lactic Acid (0.5-2.0) mmol/L Calcium (8.6-10.3) mg/dL Magnesium (1.9-2.7) mg/dL Total Bilirubin (0.2-1.0) mg/dL AST (13-39) U/L ALT (7-52) U/L Alkaline Phosphatase (34-104) U/L Total Protein (6.4-8.9) g/dL Albumin (3.2-5.2) g/dL Globulin (2-4) g/dL Albumin/Globulin Ratio (1-3) TSH (0.34-5.60) mcIU/mL Urine Color Straw Urine Appearance Clear Urine pH 6.0 (5-9) Ur Specific Webster 1.010 (1.010-1.030) Urine Protein Negative (Negative) Urine Ketones Negative (Negative) Urine Blood Negative (Negative) Urine Nitrate Negative (Negative) Urine Bilirubin Negative (Negative) Urine Urobilinogen Negative (Negative) Ur Leukocyte Esterase Negative (Negative) Urine Glucose Negative (Negative) Urine Opiates Screen (None Detect) Ur Barbiturates Screen (None Detect) Ur Phencyclidine Scrn (None Detect) Ur Amphetamines Screen (None Detect) U Benzodiazepines Scrn (None Detect) Urine Cocaine Screen (None Detect) U Cannabinoids Screen (None Detect) Serum Alcohol (<10) mg/dL 02/13/17 02/13/17 02/13/17 Range/Units 14:50 14:50 14:50 WBC (3.5-10.8) 10^3/ul RBC (4.0-5.4) 10^6/ul Hgb (14.0-18.0) g/dl Hct (42-52) % MCV (80-94) fL MCH (27-31) pg MCHC (31-36) g/dl RDW (10.5-15) % Plt Count (150-450) 10^3/ul MPV (7.4-10.4) um3 Neut % (Auto) (38-83) % Lymph % (Auto) (25-47) % Sierra % (Auto) (1-9) % Eos % (Auto) (0-6) % Baso % (Auto) (0-2) % Absolute Neuts (auto) (1.5-7.7) 10^3/ul Absolute Lymphs (auto) (1.0-4.8) 10^3/ul Absolute Monos (auto) (0-0.8) 10^3/ul Absolute Eos (auto) (0-0.6) 10^3/ul Absolute Basos (auto) (0-0.2) 10^3/ul Absolute Nucleated RBC 10^3/ul Nucleated RBC % INR (Anticoag Therapy) (0.89-1.11) Sodium 135 (133-145) mmol/L Potassium 4.2 (3.5-5.0) mmol/L Chloride 102 (101-111) mmol/L Carbon Dioxide 29 (22-32) mmol/L Anion Gap 4 (2-11) mmol/L BUN 16 (6-24) mg/dL Creatinine 1.38 H (0.67-1.17) mg/dL Est GFR ( Amer) 83.6 (>60) Est GFR (Non-Af Amer) 65.0 (>60) BUN/Creatinine Ratio 11.6 (8-20) Glucose 91 (70-100) mg/dL Lactic Acid 1.4 (0.5-2.0) mmol/L Calcium 9.3 (8.6-10.3) mg/dL Magnesium 2.2 (1.9-2.7) mg/dL Total Bilirubin 0.30 (0.2-1.0) mg/dL AST 22 (13-39) U/L ALT 13 (7-52) U/L Alkaline Phosphatase 62 (34-104) U/L Total Protein 7.3 (6.4-8.9) g/dL Albumin 4.2 (3.2-5.2) g/dL Globulin 3.1 (2-4) g/dL Albumin/Globulin Ratio 1.4 (1-3) TSH 1.60 (0.34-5.60) mcIU/mL Urine Color Urine Appearance Urine pH (5-9) Ur Specific Webster (1.010-1.030) Urine Protein (Negative) Urine Ketones (Negative) Urine Blood (Negative) Urine Nitrate (Negative) Urine Bilirubin (Negative) Urine Urobilinogen (Negative) Ur Leukocyte Esterase (Negative) Urine Glucose (Negative) Urine Opiates Screen None detected (None Detect) Ur Barbiturates Screen None detected (None Detect) Ur Phencyclidine Scrn None detected (None Detect) Ur Amphetamines Screen Presumptive positive H (None Detect) U Benzodiazepines Scrn Presumptive positive H (None Detect) Urine Cocaine Screen None detected (None Detect) U Cannabinoids Screen None detected (None Detect) Serum Alcohol < 10 (<10) mg/dL Result Diagrams: 02/13/17 14:50 02/13/17 14:50 Lab Statement: Any lab studies that have been ordered have been reviewed, and results considered in the medical decision making process. Course/Dx - Course Course Of Treatment: Mr. Shultz remained stable here and his psychiatrist Dr. Ford was willing to see him in the office at his previously schedule time this evening and plans to give him a tapering, bridging prescription for klonpin. - Diagnoses Provider Diagnoses: Benzodiazepine withdrawal, Seizure - Physician Notifications Discussed Care of Patient With: Call to [facility] made at 1612. Discussed care of patient with Dr. Adler whom notes that he believes the pt should be on a slow taper of clonazepam. Dr. Hunter(psychiatrist) was called to discuss the pt clonazepam dosages and further care. 16:24 Dr. Hunter does not recommend a Rx for clonazepam. Dr. Ford( pt psychiatrist) recommends the pt see him at his appt at 7:30pm tonight. 1706: Dr. Humphreys will admit however the pt is not willing to be admitted. Discharge - Discharge Plan Condition: Stable Disposition: HOME Prescriptions: Sulfacetamide 10 % OPTH.GERALD* [Sulamyd 10% Opth*] 1 drop RIGHT EYE Q4H #1 btl Patient Education Materials: Conjunctivitis (ED) Referrals: [facility] KRISTEN Turner [Primary Care Provider] - Member Camron AYALA [Medical Doctor] - (PLEASE ATTEND YOUR APPOINTMENT AT 7:30PM TONIGHT ) The documentation as recorded by the Danish grider Claudia accurately reflects the service I personally performed and the decisions made by me, David Mccabe MD.
== END 2017-02-13 17:44 | disposition home or self-care (01) ==
LOC: ED 14:16
DX: R56.9 Unspecified convulsions (principal); F19.939 Other psychoactive substance use, unspecified with withdrawal, unspecified; R51 Headache; Z72.0 Tobacco use
CPT/HCPCS: 36415; 80053; 80307; 80320; 81003; 83605; 83735; 84443; 85025; 85610; 96374; 99282; A9270-GY; G0480; J1885

== ENCOUNTER 2017-02-23 11:28 | Emergency (ER) | payer BC ==
[2017-02-23 12:02] LABS: Urine Bacteria Absent (Absent); Urine Bilirubin Negative (Negative); Urine Glucose Negative (Negative); Urine Nitrite Negative (Negative)
[2017-02-23 12:05] LABS: Hematocrit 41 % (42-52); Hemoglobin 13.7 g/dl (14.0-18.0); Mean Corpuscular HGB Conc 33 g/dl (31-36); Mean Corpuscular Hemoglobin 27 pg (27-31); Mean Corpuscular Volume 82 fL (80-94); Mean Platelet Volume 7 um3 (7.4-10.4); Red Blood Count 5.01 10^6/ul (4.0-5.4); Red Cell Distribution Width 13 % (10.5-15); White Blood Count 11.6 10^3/ul (3.5-10.8)
[2017-02-23 12:20] LABS: Benzodiazepine Urine Screen Presumptive Positive (None Detect)
[2017-02-23 12:20] LABS: ALT 23 U/L (7-52); AST 53 U/L (13-39); Albumin 3.8 g/dL (3.2-5.2); Alkaline Phosphatase 55 U/L (34-104); Anion Gap 6 mmol/L (2-11); BUN/Creatinine Ratio 10.4 (8-20); Blood Urea Nitrogen 19 mg/dL (6-24); CO2 Carbon Dioxide 27 mmol/L (22-32); Calcium 9.5 mg/dL (8.6-10.3); Chloride 104 mmol/L (101-111); EGFR African American 60.4 (>60); Globulin 3.3 g/dL (2-4); Glucose 92 mg/dL (70-100); Potassium 3.8 mmol/L (3.5-5.0); Sodium 137 mmol/L (133-145); Total Protein 7.1 g/dL (6.4-8.9)
[2017-02-23 12:43] LABS: Acetaminophen < 15 mcg/mL; Alcohol < 10 mg/dL (<10); Salicylate < 2.50 mg/dL (<30)
[2017-02-23 12:53] LABS: TSH (Thyroid Stimulating Horm) 3.68 mcIU/mL (0.34-5.60)
[2017-02-23 15:21] VITALS: BP 126/75
--- NOTE | 2017-02-23 18:24 | ED ---
January Jin Anna, scribed for Mika Bautista MD on 02/23/17 at 1145 . Psychiatric Complaint - HPI Summary HPI Summary: Patient is a 21 y/o male coming to [facility] presenting with the onset of constant altered mental status that began today. He denies use of heroin or other drugs. He used marijuana yesterday and was able to sleep last night. He reports that he is feeling fine right now and reports that he does not feel like he would self-harm or harm others at this time. He denies current pain or illness at this time. 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 His history is significant for opiate abuse, ADHD, and anxiety. He recently completed an intensive outpatient program in November 2016 and relapsed on opiates in December 2016. He was admitted to the [facility] inpatient psychiatric program on 02/08/2017 for suicidal ideation following a breakup with his girlfriend and was discharged on 02/12/2017 to the care of his father. - History Of Current Complaint Chief Complaint: EDMentalHealth Time Seen by Provider: 02/23/17 11:39 Hx Obtained From: Patient, EMS - Allergies/Home Medications Allergies/Adverse Reactions: Allergies Allergy/AdvReac Type Severity Reaction Status Date / Time Tramadol Allergy depressed Verified 02/13/17 14:44 PMH/Surg Hx/FS Hx/Imm Hx Endocrine/Hematology History: Denies: Hx Diabetes Cardiovascular History: Denies: Hx Myocardial Infarction, Hx Pacemaker/ICD Sensory History: Denies: Hx Contacts or Glasses, Hx Hearing Aid Opthamlomology History: Denies: Hx Contacts or Glasses Psychiatric History: Reports: Hx Anxiety, Hx Substance Abuse - IVDA Denies: Hx Eating Disorder, Hx Panic Disorder, Hx of Violent Episodes Against Others - Surgical History Surgery Procedure, Year, and Place: ORAL SURGERY - Family History Known Family History: Positive: Diabetes, Other - Substance abuse - Social History Alcohol Use: Rare Alcohol Amount: denies Hx Substance Use: Yes Substance Use Type: Reports: Cocaine, Heroin, Prescribed Substance Use Comment - Amount & Last Used: Last use heroin IV 2 days ago Hx Tobacco Use: Yes Smoking Status (MU): Current Some Day Smoker Type: Cigarettes Have You Smoked in the Last Year: Yes Review of Systems Negative: Fever Neurological: Other - altered mental status Psychological: Other - Patient denies SI, HI All Other Systems Reviewed And Are Negative: Yes Physical Exam Triage Information Reviewed: Yes Vital Signs On Initial Exam: Temp Pulse Resp BP Pulse Ox 99.2 F 116 18 120/75 97 02/23/17 11:48 02/23/17 11:48 02/23/17 11:48 02/23/17 11:48 02/23/17 11:48 Vital Signs Reviewed: Yes Appearance: Positive: Well-Appearing, No Pain Distress Skin: Positive: Warm, Skin Color Reflects Adequate Perfusion, Dry Head/Face: Positive: Normal Head/Face Inspection Eyes: Positive: EOMI, DANN ENT: Positive: Normal ENT inspection Neck: Positive: Supple, Nontender Respiratory/Lung Sounds: Positive: Clear to Auscultation, Breath Sounds Present Cardiovascular: Positive: RRR Abdomen Description: Positive: Nontender, Soft Bowel Sounds: Positive: Present Musculoskeletal: Positive: Normal, Strength/ROM Intact Neurological: Positive: Normal, Sensory/Motor Intact, Alert, Oriented to Person Place, Time Psychiatric: Positive: Affect/Mood Appropriate Diagnostics - Vital Signs Vital Signs Temp Pulse Resp BP Pulse Ox 02/23/17 17:21 98.4 F 114 16 126/75 02/23/17 15:14 98.4 F 114 16 126/75 97 02/23/17 12:50 99.2 F 116 18 120/75 97 02/23/17 11:48 99.2 F 116 18 120/75 97 - Laboratory Lab Results: Lab Results 02/23/17 02/23/17 02/23/17 Range/Units 11:40 11:45 11:45 WBC 11.6 H (3.5-10.8) 10^3/ul RBC 5.01 (4.0-5.4) 10^6/ul Hgb 13.7 L (14.0-18.0) g/dl Hct 41 L (42-52) % MCV 82 (80-94) fL MCH 27 (27-31) pg MCHC 33 (31-36) g/dl RDW 13 (10.5-15) % Plt Count 265 (150-450) 10^3/ul MPV 7 L (7.4-10.4) um3 Neut % (Auto) 54.9 (38-83) % Lymph % (Auto) 29.4 (25-47) % [place] % (Auto) 12.5 H (1-9) % Eos % (Auto) 2.0 (0-6) % Baso % (Auto) 1.2 (0-2) % Absolute Neuts (auto) 6.4 (1.5-7.7) 10^3/ul Absolute Lymphs (auto) 3.4 (1.0-4.8) 10^3/ul Absolute Monos (auto) 1.5 H (0-0.8) 10^3/ul Absolute Eos (auto) 0.2 (0-0.6) 10^3/ul Absolute Basos (auto) 0.1 (0-0.2) 10^3/ul Absolute Nucleated RBC 0.02 10^3/ul Nucleated RBC % 0.2 Sodium 137 (133-145) mmol/L Potassium 3.8 (3.5-5.0) mmol/L Chloride 104 (101-111) mmol/L Carbon Dioxide 27 (22-32) mmol/L Anion Gap 6 (2-11) mmol/L BUN 19 (6-24) mg/dL Creatinine 1.83 H (0.67-1.17) mg/dL Est GFR ( Amer) 60.4 (>60) Est GFR (Non-Af Amer) 47.0 (>60) BUN/Creatinine Ratio 10.4 (8-20) Glucose 92 (70-100) mg/dL Calcium 9.5 (8.6-10.3) mg/dL Total Bilirubin 0.60 (0.2-1.0) mg/dL AST 53 H (13-39) U/L ALT 23 (7-52) U/L Alkaline Phosphatase 55 (34-104) U/L Total Protein 7.1 (6.4-8.9) g/dL Albumin 3.8 (3.2-5.2) g/dL Globulin 3.3 (2-4) g/dL Albumin/Globulin Ratio 1.2 (1-3) TSH 3.68 (0.34-5.60) mcIU/mL Urine Color Yellow Urine Appearance Clear Urine pH 5.0 (5-9) Ur Specific [place] 1.008 L (1.010-1.030) Urine Protein 1+(30 mg/dl) H (Negative) Urine Ketones Negative (Negative) Urine Blood Negative (Negative) Urine Nitrate Negative (Negative) Urine Bilirubin Negative (Negative) Urine Urobilinogen Negative (Negative) Ur Leukocyte Esterase Negative (Negative) Urine WBC (Auto) Absent (Absent) Urine RBC (Auto) Absent (Absent) Ur Squamous Epith Cells Present H (Absent) Urine Bacteria Absent (Absent) Urine Glucose Negative (Negative) Salicylates < 2.50 (<30) mg/dL Urine Opiates Screen (None Detect) Acetaminophen < 15 mcg/mL Ur Barbiturates Screen (None Detect) Ur Phencyclidine Scrn (None Detect) Ur Amphetamines Screen (None Detect) U Benzodiazepines Scrn (None Detect) Urine Cocaine Screen (None Detect) U Cannabinoids Screen (None Detect) Serum Alcohol < 10 (<10) mg/dL 02/23/17 Range/Units 11:45 WBC (3.5-10.8) 10^3/ul RBC (4.0-5.4) 10^6/ul Hgb (14.0-18.0) g/dl Hct (42-52) % MCV (80-94) fL MCH (27-31) pg MCHC (31-36) g/dl RDW (10.5-15) % Plt Count (150-450) 10^3/ul MPV (7.4-10.4) um3 Neut % (Auto) (38-83) % Lymph % (Auto) (25-47) % [place] % (Auto) (1-9) % Eos % (Auto) (0-6) % Baso % (Auto) (0-2) % Absolute Neuts (auto) (1.5-7.7) 10^3/ul Absolute Lymphs (auto) (1.0-4.8) 10^3/ul Absolute Monos (auto) (0-0.8) 10^3/ul Absolute Eos (auto) (0-0.6) 10^3/ul Absolute Basos (auto) (0-0.2) 10^3/ul Absolute Nucleated RBC 10^3/ul Nucleated RBC % Sodium (133-145) mmol/L Potassium (3.5-5.0) mmol/L Chloride (101-111) mmol/L Carbon Dioxide (22-32) mmol/L Anion Gap (2-11) mmol/L BUN (6-24) mg/dL Creatinine (0.67-1.17) mg/dL Est GFR ( Amer) (>60) Est GFR (Non-Af Amer) (>60) BUN/Creatinine Ratio (8-20) Glucose (70-100) mg/dL Calcium (8.6-10.3) mg/dL Total Bilirubin (0.2-1.0) mg/dL AST (13-39) U/L ALT (7-52) U/L Alkaline Phosphatase (34-104) U/L Total Protein (6.4-8.9) g/dL Albumin (3.2-5.2) g/dL Globulin (2-4) g/dL Albumin/Globulin Ratio (1-3) TSH (0.34-5.60) mcIU/mL Urine Color Urine Appearance Urine pH (5-9) Ur Specific [place] (1.010-1.030) Urine Protein (Negative) Urine Ketones (Negative) Urine Blood (Negative) Urine Nitrate (Negative) Urine Bilirubin (Negative) Urine Urobilinogen (Negative) Ur Leukocyte Esterase (Negative) Urine WBC (Auto) (Absent) Urine RBC (Auto) (Absent) Ur Squamous Epith Cells (Absent) Urine Bacteria (Absent) Urine Glucose (Negative) Salicylates (<30) mg/dL Urine Opiates Screen None detected (None Detect) Acetaminophen mcg/mL Ur Barbiturates Screen None detected (None Detect) Ur Phencyclidine Scrn None detected (None Detect) Ur Amphetamines Screen Presumptive positive H (None Detect) U Benzodiazepines Scrn Presumptive positive H (None Detect) Urine Cocaine Screen None detected (None Detect) U Cannabinoids Screen Presumptive positive H (None Detect) Serum Alcohol (<10) mg/dL Result Diagrams: 02/23/17 11:45 02/23/17 11:40 Lab Statement: Any lab studies that have been ordered have been reviewed, and results considered in the medical decision making process. Course/Dx - Course Course Of Treatment: Pt is medically cleared for MHU Evaluation at 1500 Assessment/Plan: DISCHARGED HOME STABLE AFTER MHE. CALLED THE PATIENT AT 1815 ON HIS CELL PHONE AND TOLD HIM ABOUT HIS ELEVATED CREATININE/RENAL INSUFFICIENCY. I TOLD HIM TO INCREASE HIS WATER INTAKE AND GET HIS KIDNEY FUNCTION RECHECKED AT [facility] IN 1-2 DAYS. HE AGREED TO DO THIS. - Differential Dx/Clinical Impression Provider Diagnosis: Mental health problem, Renal insufficiency Discharge - Discharge Plan Condition: Stable Disposition: HOME Referrals: [place] [facility] KRISTEN Turner [Primary Care Provider] - Additional Instructions: Per completion of a mental health evaluation, you are cleared for release and do not require inpatient psychiatric hospitalization at this time. Please go to nearest emergency room or call 911 if safety concerns arise or condition worsens. Important Phone Numbers: [facility] ph:[phone] Su[facility] Prevention [facility] Crisis Services ph:[phone] [place] [facility]eline ph:[phone] (7332) [facility] ph:[phone] Alcoholics Anonymous ph:[phone] [facility] ph:[phone] [place] [employer] ph:[phone] The documentation as recorded by the January grider Anna accurately reflects the service I personally performed and the decisions made by me, Mika Bautista MD.
== END 2017-02-23 17:21 | disposition home or self-care (01) ==
LOC: ED 11:28
DX: F48.9 Nonpsychotic mental disorder, unspecified (principal); N28.9 Disorder of kidney and ureter, unspecified; F17.210 Nicotine dependence, cigarettes, uncomplicated; F41.9 Anxiety disorder, unspecified
CPT/HCPCS: 36415; 80053; 80307; 80320; 80329; 81003; 81015; 84443; 85025; 99283; G0480